=== PATIENT | male | born 1930 | race Caucasian/White ===

== ENCOUNTER 2018-08-15 12:42 | Emergency (ER) | payer MEDICARE, OTHER | END 2018-08-15 15:23 | disposition home or self-care (01) | LOC: E/R 12:42 | DX: S01.81XA Laceration without foreign body of other part of head, initial encounter (principal); S00.33XA Contusion of nose, initial encounter; J44.9 Chronic obstructive pulmonary disease, unspecified; I10 Essential (primary) hypertension; S09.90XA Unspecified injury of head, initial encounter; W01.198A Fall on same level from slipping, tripping and stumbling with subsequent striking against other object, initial encounter; Y92.9 Unspecified place or not applicable; Z85.9 Personal history of malignant neoplasm, unspecified; Z79.01 Long term (current) use of anticoagulants | CPT/HCPCS: 70450; 99284 ==

== ENCOUNTER 2019-01-03 06:05 | Inpatient (IN) | payer MEDICARE, OTHER ==
[2019-01-03 06:24] LABS: ADD MAN DIFF? NO
[2019-01-03 06:33] LABS: WHITE BLOOD COUNT 8.3 10^3/ul (4.8-10.8)
[2019-01-03 06:33] LABS: BASOPHILS % 0.1 % (0.0-2.0); EOSINOPHILS # 0.1 10^3/ul (0.0-0.5); EOSINOPHILS % 1.2 % (0.0-7.0); HEMATOCRIT 33.8 % (42.0-52.0); HEMOGLOBIN 10.2 g/dl (14.0-18.0); LYMPHOCYTES # 1.7 10^3/ul (0.8-2.9); LYMPHOCYTES % 19.9 % (15.0-51.0); MEAN CORPUSCULAR HEMOGLOBIN 26.1 pg (29.0-33.0); MEAN CORPUSCULAR HGB CONC 30.2 g/dl (32.0-37.0); MEAN CORPUSCULAR VOLUME 86.4 fl (82.0-101.0); MEAN PLATELET VOLUME 10.9 fl (7.4-10.4); MONOCYTE # 1.4 10^3/ul (0.3-0.9); MONOCYTES % 17.1 % (0.0-11.0); NEUTROPHIL # 4.9 10^3/ul (1.6-7.5); NEUTROPHILS % 59.6 % (39.0-77.0); PLATELET COUNT 230 10^3/UL (140-415); RED BLOOD COUNT 3.91 10^6/ul (4.70-6.10); RED CELL DISTRIBUTION WIDTH 17.1 % (11.5-14.5)
[2019-01-03 06:44] LABS: ANION GAP 10 (5-13); BLOOD UREA NITROGEN 37 mg/dl (7-20); CALCIUM 9.4 mg/dl (8.4-10.2); CARBON DIOXIDE 22 mmol/L (21-31); CHLORIDE 111 mmol/L (97-110); CREATININE 1.75 mg/dl (0.61-1.24); GLUCOSE 126 mg/dl (70-220); INR 1.02; POTASSIUM 5.4 mmol/L (3.5-5.1); PROTIME 13.5 Sec (11.9-14.9); PT RATIO 1.1; SODIUM 143 mmol/L (135-144)
[2019-01-03 06:57] LABS: B-TYPE NATRIURETIC PEPTIDE 4690 PG/ML (0-450); TROPONIN-I < 0.012 ng/ml (0.000-0.120)
[2019-01-03] MEDS ORDERED: ONDANSETRON 4 MG INJ IV (07:30)
[2019-01-03] MEDS ORDERED: ACETAMINOPHEN 325 MG TAB PO ×2 (07:30→09:30)
[2019-01-03] MEDS: ASPIRIN 81 MG TAB PO (08:00)
[2019-01-03] MEDS: FUROSEMIDE 40 MG INJ IV ×2 (08:00→17:46)
[2019-01-03] MEDS ORDERED: GLUCOSE GEL 15 GRAM TUBE BUCCAL (09:30)
[2019-01-03] MEDS ORDERED: morphine 2 MG INJ IV (09:30)
[2019-01-03] MEDS ORDERED: DEXTROSE 50% 50 ML SYRINGE IV ×2 (09:30)
[2019-01-03] MEDS ORDERED: hydrALAzine 20 MG INJ IV (09:30)
[2019-01-03] MEDS ORDERED: GLUCAGON 1 MG INJ IM (09:30)
[2019-01-03] MEDS ORDERED: GLUCOSE GEL 15 GRAM TUBE PO ×2 (09:30)
[2019-01-03] MEDS ORDERED: ALBUTEROL/IPRATROPIUM (NEB) 3 ML AMP HHN (09:30)
[2019-01-03] MEDS ORDERED: NITROGLYCERIN (SL) 0.4 MG TAB SL (09:30)
[2019-01-03] MEDS ORDERED: NACL 0.9% 3 ML SYG IV (09:30)
[2019-01-03] MEDS ORDERED: HYDROCODONE/APAP (5/325) TAB PO (09:30)
[2019-01-03] MEDS: CEFTRIAXONE 1 GM/50 ML (PMX) 50 ML IVPB (10:17)
[2019-01-03] MEDS: INSULIN ASPART [NOVOLOG] 3 ML PEN SC ×3 (12:00→22:29)
[2019-01-03] MEDS: FAMOTIDINE 20 MG TAB PO (12:05)
[2019-01-03] MEDS: AZITHROMYCIN 500MG/NS (PMX) 250 ML IVPB (12:05)
[2019-01-03 12:20] LABS: CREATINE KINASE 24 IU/L (23-200)
[2019-01-03 12:33] LABS: CK INDEX 2.9; TROPONIN-I < 0.012 ng/ml (0.000-0.120)
[2019-01-03] MEDS: CIPROFLOXACIN 400MG/D5W 200 ML IVPB (15:55)
[2019-01-03] MEDS: metroNIDAZOLE 500 MG/NS (PMX) 100 ML IVPB ×2 (16:02→22:38)
[2019-01-03] MEDS: ALBUTEROL/IPRATROPIUM (NEB) 3 ML AMP HHN ×2 (17:19→20:38)
[2019-01-03 18:35] LABS: CREATINE KINASE 22 IU/L (23-200)
[2019-01-03 18:48] LABS: CK-MB 0.67 ng/ml (0.0-2.4); TROPONIN-I < 0.012 ng/ml (0.000-0.120)
[2019-01-03] MEDS: BUDESONIDE (NEB) 0.5MG/2ML AMP HHN (20:39)
[2019-01-03] MEDS: ATORVASTATIN 40 MG TAB PO (22:31)
[2019-01-03] MEDS: TAMSULOSIN (SR) 0.4 MG CAP PO (22:31)
[2019-01-03] MEDS: FOLIC ACID 1 MG TAB PO (22:31)
[2019-01-03] MEDS: MEMANTINE 10 MG TAB PO (22:31)
[2019-01-03] MEDS: FISH OIL 1,000 MG CAP PO (22:42)
[2019-01-03] MEDS: ACCU-CHEK XX (22:42)
[2019-01-03 23:50] LABS: CREATININE,URINE RANDOM < 12.40 mg/dl (20-370)
[2019-01-03 23:52] LABS: ADD UMIC YES; UR ASCORBIC ACID NEGATIVE (NEGATIVE); UR BILIRUBIN (Dip) NEGATIVE (NEGATIVE); UR BLOOD (Dip) 3+ mg/dL (NEGATIVE); UR CLARITY CLEAR (CLEAR); UR COLOR COLORLESS (YELLOW); UR GLUCOSE (Dip) NEGATIVE (NEGATIVE); UR KETONES (Dip) NEGATIVE (NEGATIVE); UR LEUKOCYTE ESTERASE (Dip) NEGATIVE Leu/ul (NEGATIVE); UR NITRITE (Dip) NEGATIVE (NEGATIVE); UR RBC > 182 /HPF (0-5); UR SPECIFIC GRAVITY (Dip) 1.005 (1.003-1.030); UR TOTAL PROTEIN (Dip) NEGATIVE (NEGATIVE); UR UROBILINOGEN (Dip) NEGATIVE (NEGATIVE); UR WBC 1 /HPF (0-5)
[2019-01-04] MEDS: metroNIDAZOLE 500 MG/NS (PMX) 100 ML IVPB ×3 (05:49→21:03)
[2019-01-04 06:08] LABS: ADD MAN DIFF? NO
[2019-01-04 06:25] LABS: WHITE BLOOD COUNT 6.5 10^3/ul (4.8-10.8)
[2019-01-04 06:25] LABS: ABNORMAL IP MESSAGE 1; BASOPHILS % 0.2 % (0.0-2.0); EOSINOPHILS % 0.6 % (0.0-7.0); HEMATOCRIT 30.3 % (42.0-52.0); HEMOGLOBIN 9.4 g/dl (14.0-18.0); LYMPHOCYTES # 1.3 10^3/ul (0.8-2.9); LYMPHOCYTES % 19.8 % (15.0-51.0); MEAN CORPUSCULAR HEMOGLOBIN 26.7 pg (29.0-33.0); MEAN CORPUSCULAR VOLUME 86.1 fl (82.0-101.0); MEAN PLATELET VOLUME 11.4 fl (7.4-10.4); MONOCYTE # 1.8 10^3/ul (0.3-0.9); MONOCYTES % 27.8 % (0.0-11.0); NEUTROPHIL # 3.1 10^3/ul (1.6-7.5); NEUTROPHILS % 48.5 % (39.0-77.0); PLATELET COUNT 188 10^3/UL (140-415); POSITIVE DIFF @See below; RED BLOOD COUNT 3.52 10^6/ul (4.70-6.10); RED CELL DISTRIBUTION WIDTH 16.9 % (11.5-14.5)
[2019-01-04] MEDS: LEVOTHYROXINE 50 MCG TAB PO (06:42)
[2019-01-04] MEDS: FUROSEMIDE 40 MG INJ IV ×2 (06:43→17:31)
[2019-01-04 06:44] LABS: ALANINE AMINOTRANSFERASE 20 IU/L (13-69); ALBUMIN 3.6 g/dl (3.3-4.9); ALBUMIN/GLOBULIN RATIO 1.28; ALKALINE PHOSPHATASE 66 IU/L (42-121); ANION GAP 11 (5-13); ASPARTATE AMINO TRANSFERASE 13 IU/L (15-46); BILIRUBIN,INDIRECT 0.4 mg/dl (0-1.1); BILIRUBIN,TOTAL 0.4 mg/dl (0.2-1.3); BLOOD UREA NITROGEN 39 mg/dl (7-20); CALCIUM 9.1 mg/dl (8.4-10.2); CARBON DIOXIDE 26 mmol/L (21-31); CHLORIDE 106 mmol/L (97-110); CHOL/HDL RATIO 8.5 RATIO; CHOLESTEROL 154 mg/dl (100-200); CREATININE 2.01 mg/dl (0.61-1.24); GLUCOSE 109 mg/dl (70-220); HDL CHOLESTEROL 18 mg/dl (31-75); LDL CHOLESTEROL,CALCULATED 112 mg/dl; POTASSIUM 4.9 mmol/L (3.5-5.1); SODIUM 143 mmol/L (135-144); TOTAL PROTEIN 6.4 g/dl (6.1-8.1); TRIGLYCERIDES 119 mg/dl (0-149)
[2019-01-04 07:22] LABS: PHOSPHORUS 4.2 mg/dl (2.5-4.9)
[2019-01-04 07:22] LABS: MAGNESIUM 1.8 mg/dl (1.7-2.5)
[2019-01-04 07:48] LABS: HEMOGLOBIN A1C 5.3 % (0-5.9)
[2019-01-04] MEDS: INSULIN ASPART [NOVOLOG] 3 ML PEN SC ×4 (07:55→21:00)
[2019-01-04] MEDS: ALBUTEROL/IPRATROPIUM (NEB) 3 ML AMP HHN ×3 (08:16→20:09)
[2019-01-04] MEDS: BUDESONIDE (NEB) 0.5MG/2ML AMP HHN ×2 (08:16→20:09)
[2019-01-04] MEDS: FISH OIL 1,000 MG CAP PO ×2 (08:23→21:03)
[2019-01-04] MEDS: DULOXETINE 30 MG CAP DR PO (08:23)
[2019-01-04] MEDS: ASPIRIN 81 MG TAB PO (08:24)
[2019-01-04] MEDS: DUTASTERIDE 0.5 MG CAP PO (08:24)
[2019-01-04] MEDS: CLOPIDOGREL 75 MG TAB PO (08:24)
[2019-01-04] MEDS: ISOSORBIDE MONONITRATE(SR)30 MG TAB PO (08:24)
[2019-01-04] MEDS: AMLODIPINE 10 MG TAB PO (08:25)
[2019-01-04] MEDS: MEMANTINE 10 MG TAB PO ×2 (08:25→21:03)
[2019-01-04] MEDS: FAMOTIDINE 20 MG TAB PO (08:25)
[2019-01-04] MEDS: FOLIC ACID 1 MG TAB PO ×2 (08:25→21:03)
[2019-01-04] MEDS: CEFTRIAXONE 1 GM/50 ML (PMX) 50 ML IVPB (10:55)
[2019-01-04] MEDS: ATORVASTATIN 40 MG TAB PO (21:03)
[2019-01-04] MEDS: TAMSULOSIN (SR) 0.4 MG CAP PO (21:12)
[2019-01-04] MEDS: ACCU-CHEK XX (21:13)
[2019-01-05] MEDS: metroNIDAZOLE 500 MG/NS (PMX) 100 ML IVPB ×3 (05:48→21:32)
[2019-01-05 06:26] LABS: ADD MAN DIFF? NO
[2019-01-05] MEDS: LEVOTHYROXINE 50 MCG TAB PO (06:33)
[2019-01-05 06:37] LABS: WHITE BLOOD COUNT 5.4 10^3/ul (4.8-10.8)
[2019-01-05 06:37] LABS: BASOPHILS % 0.4 % (0.0-2.0); EOSINOPHILS # 0.1 10^3/ul (0.0-0.5); EOSINOPHILS % 1.3 % (0.0-7.0); HEMATOCRIT 29.1 % (42.0-52.0); HEMOGLOBIN 9.2 g/dl (14.0-18.0); LYMPHOCYTES # 1.5 10^3/ul (0.8-2.9); LYMPHOCYTES % 27.7 % (15.0-51.0); MEAN CORPUSCULAR HEMOGLOBIN 26.5 pg (29.0-33.0); MEAN CORPUSCULAR HGB CONC 31.6 g/dl (32.0-37.0); MEAN CORPUSCULAR VOLUME 83.9 fl (82.0-101.0); MEAN PLATELET VOLUME 11.3 fl (7.4-10.4); MONOCYTE # 1.3 10^3/ul (0.3-0.9); NEUTROPHIL # 2.3 10^3/ul (1.6-7.5); NEUTROPHILS % 42.9 % (39.0-77.0); PLATELET COUNT 190 10^3/UL (140-415); RED BLOOD COUNT 3.47 10^6/ul (4.70-6.10); RED CELL DISTRIBUTION WIDTH 17.3 % (11.5-14.5)
[2019-01-05 07:05] LABS: ANION GAP 13 (5-13); BLOOD UREA NITROGEN 43 mg/dl (7-20); CALCIUM 8.6 mg/dl (8.4-10.2); CARBON DIOXIDE 24 mmol/L (21-31); CHLORIDE 105 mmol/L (97-110); CREATININE 2.39 mg/dl (0.61-1.24); GLUCOSE 99 mg/dl (70-220); IRON 24 ug/dl (35-150); MAGNESIUM 1.7 mg/dl (1.7-2.5); PHOSPHORUS 4.6 mg/dl (2.5-4.9); POTASSIUM 3.8 mmol/L (3.5-5.1); SODIUM 142 mmol/L (135-144)
[2019-01-05 07:14] LABS: % IRON SATURATION 11 % SAT (22-52); TOTAL IRON BINDING CAPACITY 227 ug/dl (241-421)
[2019-01-05] MEDS: INSULIN ASPART [NOVOLOG] 3 ML PEN SC ×4 (07:47→20:30)
[2019-01-05] MEDS: FOLIC ACID 1 MG TAB PO ×2 (08:11→21:12)
[2019-01-05] MEDS: FISH OIL 1,000 MG CAP PO ×2 (08:11→21:12)
[2019-01-05] MEDS: CLOPIDOGREL 75 MG TAB PO (08:11)
[2019-01-05] MEDS: FAMOTIDINE 20 MG TAB PO (08:12)
[2019-01-05] MEDS: MEMANTINE 10 MG TAB PO ×2 (08:12→21:12)
[2019-01-05] MEDS: DULOXETINE 30 MG CAP DR PO (08:12)
[2019-01-05] MEDS: ASPIRIN 81 MG TAB PO (08:12)
[2019-01-05] MEDS: ISOSORBIDE MONONITRATE(SR)30 MG TAB PO (08:12)
[2019-01-05] MEDS: AMLODIPINE 10 MG TAB PO (08:12)
[2019-01-05] MEDS: DUTASTERIDE 0.5 MG CAP PO (08:12)
[2019-01-05] MEDS: BUDESONIDE (NEB) 0.5MG/2ML AMP HHN ×2 (08:24→19:33)
[2019-01-05] MEDS: ALBUTEROL/IPRATROPIUM (NEB) 3 ML AMP HHN ×3 (08:24→19:33)
[2019-01-05] MEDS: CEFTRIAXONE 1 GM/50 ML (PMX) 50 ML IVPB (09:32)
[2019-01-05 12:55] LABS: PROSTATE SPECIFIC ANTIGEN 0.9 ng/ml (0.0-4.0)
[2019-01-05] MEDS: ATORVASTATIN 40 MG TAB PO (21:12)
[2019-01-05] MEDS: TAMSULOSIN (SR) 0.4 MG CAP PO (21:16)
[2019-01-06] MEDS: ACCU-CHEK XX (02:57)
[2019-01-06] MEDS: metroNIDAZOLE 500 MG/NS (PMX) 100 ML IVPB (05:51)
[2019-01-06] MEDS: LEVOTHYROXINE 50 MCG TAB PO (05:58)
[2019-01-06 07:42] LABS: WHITE BLOOD COUNT 6.1 10^3/ul (4.8-10.8)
[2019-01-06 07:42] LABS: ABNORMAL IP MESSAGE 1; HEMATOCRIT 30.5 % (42.0-52.0); HEMOGLOBIN 9.3 g/dl (14.0-18.0); MEAN CORPUSCULAR HEMOGLOBIN 26.4 pg (29.0-33.0); MEAN CORPUSCULAR HGB CONC 30.5 g/dl (32.0-37.0); MEAN CORPUSCULAR VOLUME 86.6 fl (82.0-101.0); MEAN PLATELET VOLUME 11.5 fl (7.4-10.4); PLATELET COUNT 202 10^3/UL (140-415); POSITIVE DIFF @See below; RED BLOOD COUNT 3.52 10^6/ul (4.70-6.10); RED CELL DISTRIBUTION WIDTH 17.7 % (11.5-14.5)
[2019-01-06 07:47] LABS: ADD MAN DIFF? YES
[2019-01-06] MEDS: INSULIN ASPART [NOVOLOG] 3 ML PEN SC ×2 (07:51→11:14)
[2019-01-06 08:09] LABS: ANION GAP 11 (5-13); BLOOD UREA NITROGEN 39 mg/dl (7-20); CALCIUM 8.4 mg/dl (8.4-10.2); CARBON DIOXIDE 23 mmol/L (21-31); CHLORIDE 108 mmol/L (97-110); CREATININE 2.33 mg/dl (0.61-1.24); GLUCOSE 109 mg/dl (70-220); MAGNESIUM 1.8 mg/dl (1.7-2.5); PHOSPHORUS 4.4 mg/dl (2.5-4.9); POTASSIUM 3.6 mmol/L (3.5-5.1); SODIUM 142 mmol/L (135-144)
[2019-01-06] MEDS: FOLIC ACID 1 MG TAB PO (08:24)
[2019-01-06] MEDS: DULOXETINE 30 MG CAP DR PO (08:24)
[2019-01-06] MEDS: DUTASTERIDE 0.5 MG CAP PO (08:24)
[2019-01-06] MEDS: ASPIRIN 81 MG TAB PO (08:24)
[2019-01-06] MEDS: FAMOTIDINE 20 MG TAB PO (08:24)
[2019-01-06] MEDS: CLOPIDOGREL 75 MG TAB PO (08:24)
[2019-01-06] MEDS: FISH OIL 1,000 MG CAP PO (08:24)
[2019-01-06] MEDS: MEMANTINE 10 MG TAB PO (08:25)
[2019-01-06] MEDS: ISOSORBIDE MONONITRATE(SR)30 MG TAB PO (08:25)
[2019-01-06] MEDS: AMLODIPINE 10 MG TAB PO (08:25)
[2019-01-06 08:40] LABS: ANISOCYTOSIS 1+ (0-0); BAND NEUTROPHILS #M 0.1 10^3/ul (0.0-0.6); BAND NEUTROPHILS % (M) 2 % (0-4); EOSINOPHILS % (M) 1 % (0-7); GIANT THROMBO% (M) 3 % (0-0); HYPOCHROMASIA 1+ (0-0); LYMPHOCYTES % (M) 18 % (15-51); MICROCYTOSIS 1+ (0-0); MONOCYTE #M 0.7 10^3/ul (0.3-0.9); MONOCYTES % (M) 12 % (0-11); PLATELET ESTIMATE NORMAL; POLYCHROMASIA 3+ (0-0); SEG NEUT #M 4.1 10^3/ul (1.6-7.5); SEGMENTED NEUTROPHILS (M) % 67 % (39-77); SMUDGE%M 7 % (0-0)
[2019-01-06] MEDS: ALBUTEROL/IPRATROPIUM (NEB) 3 ML AMP HHN (08:56)
[2019-01-06] MEDS: BUDESONIDE (NEB) 0.5MG/2ML AMP HHN (09:17)
[2019-01-06] MEDS: CEFTRIAXONE 1 GM/50 ML (PMX) 50 ML IVPB (09:25)
[2019-01-06] MEDS: TIOTROPIUM 18 MCG CAPSULE INHA DEV INH (11:30)
[2019-01-06] MEDS: FLUTICASONE/VILANTEROL 100-25 INH (11:30)
== END 2019-01-06 12:10 | disposition left against medical advice (07) | DRG 291 ==
LOC: E/R 06:05 → TEL 07:26
DX: I13.0 Hypertensive heart and chronic kidney disease with heart failure and stage 1 through stage 4 chronic kidney disease, or unspecified chronic kidney disease (principal); I50.33 Acute on chronic diastolic (congestive) heart failure; J18.9 Pneumonia, unspecified organism; J96.01 Acute respiratory failure with hypoxia; N17.9 Acute kidney failure, unspecified; Z79.4 Long term (current) use of insulin; K52.9 Noninfective gastroenteritis and colitis, unspecified; I25.10 Atherosclerotic heart disease of native coronary artery without angina pectoris; E78.5 Hyperlipidemia, unspecified; E11.22 Type 2 diabetes mellitus with diabetic chronic kidney disease; N18.9 Chronic kidney disease, unspecified; E03.9 Hypothyroidism, unspecified; F03.90 Unspecified dementia, unspecified severity, without behavioral disturbance, psychotic disturbance, mood disturbance, and anxiety; E87.5 Hyperkalemia; N40.0 Benign prostatic hyperplasia without lower urinary tract symptoms; D63.1 Anemia in chronic kidney disease; R94.31 Abnormal electrocardiogram [ECG] [EKG]; J44.9 Chronic obstructive pulmonary disease, unspecified; Z79.02 Long term (current) use of antithrombotics/antiplatelets; Z79.84 Long term (current) use of oral hypoglycemic drugs; Z79.82 Long term (current) use of aspirin
CPT/HCPCS: 36415; 71045; 74176; 76775; 76856; 80048; 80053; 80061; 81001; 81003; 82550; 82553; 82570; 82607; 82728; 82962; 83036; 83540; 83735; 83880; 84100; 84132; 84153; 84154; 84443; 84484; 85025; 85610; 86320; 86325; 93005; 93306; 93970; 94640; 94664; 99285-25